=== PATIENT | female | born 1930 | race Caucasian/White ===

== ENCOUNTER 2017-06-15 15:57 | Inpatient (IN) | payer MEDICARE ==
[~2017-06-15] VITALS: Ht 154.9 cm; Wt 55.5 kg
[2017-06-15 17:57] VITALS: BP 145/74
[2017-06-15] MEDS ORDERED: MAGNESIUM HYDROXIDE 2,400 MG/30 ML ORAL.SUSP. PO PRN (18:30)
[2017-06-15] MEDS ORDERED: MAG HYDROX/AL HYDROX/SIMETH 30 ML ORAL.SUSP PO PRN (18:30)
[2017-06-15] MEDS ORDERED: ACETAMINOPHEN 325 MG TABLET PO PRN ×2 (18:30→20:30)
[2017-06-15] MEDS ORDERED: [UNRECOGNIZED DRUG - CODE] PO (20:03)
[2017-06-15] MEDS ORDERED: OXYC-323 PO (20:03)
[2017-06-15] MEDS ORDERED: BENZ-8 PO (20:03)
[2017-06-15] MEDS ORDERED: HYDR25CA75 PO (20:03)
[2017-06-15] MEDS ORDERED: LAMO100T5 PO (20:03)
[2017-06-15] MEDS ORDERED: GABA-586 PO (20:03)
[2017-06-15] MEDS ORDERED: HALO0.5T PO (20:03)
[2017-06-15] MEDS ORDERED: INSU100V SQ (20:03)
[2017-06-15] MEDS ORDERED: GLIP10TA13 PO (20:03)
[2017-06-15] MEDS ORDERED: PRIM50TA PO (20:03)
[2017-06-15] MEDS ORDERED: DULO60CA44 PO (20:03)
[2017-06-15] MEDS ORDERED: METO-239 PO (20:03)
[2017-06-15] MEDS ORDERED: ACET325T9 PO (20:03)
[2017-06-15] MEDS ORDERED: BISM262T6 PO (20:03)
[2017-06-15] MEDS ORDERED: OMEP40CA5 PO (20:03)
[2017-06-15] MEDS ORDERED: SILV20CR14 TP (20:03)
[2017-06-15] MEDS ORDERED: DOCU-109 PO (20:03)
[2017-06-15] MEDS ORDERED: FAMO20TA5 PO (20:03)
[2017-06-15] MEDS ORDERED: DOXY100T9 PO (20:03)
--- NOTE | 2017-06-15 20:04 | PDOC ---
Exam Note: Sukhdev Note: Please also refer to the separate dictated note~for this date of service dictated separately.~Patient seen individually. Discussed the patient with Nursing staff reviewed the chart.~Reviewed interim history and current functioning. Reviewed vital signs,~Labs/ Radiology~and current medications noted below. Continue current treatment with the changes noted in the dictated addendum note Assessment: Vital Signs: Vital Signs Date Time Temp Pulse Resp B/P (MAP) Pulse Ox O2 Delivery O2 Flow Rate FiO2 06/15/17 17:57 97.5 92 20 145/74 (97) 95 Room Air Current Medications: Meds: Current Medications Acetaminophen (Tylenol) 650 mg PRN Q6HRS PRN PO PAIN / TEMP; Start 06/15/17 at 18:30; Status UNV Multi-Ingredient Ointment (Analgesic [place]) 1 phu PRN QID PRN TP MUSCLE PAIN; Start 06/15/17 at 18:30; Status UNV Al Hydroxide/Mg Hydroxide (Mylanta Plus Xs) 15 ml PRN AFTMEALHC PRN PO DYSPEPSIA; Start 06/15/17 at 18:30; Status UNV Magnesium Hydroxide (Milk Of Magnesia) 2,400 mg PRN QHS PRN PO CONSTIPATION; Start 06/15/17 at 18:30; Status UNV Active Scripts Active Reported Silvadene (Silver Sulfadiazine) 20 Gm Cream..g. 1 Phu TP QHS Primidone 50 Mg Tablet 50 Mg PO BID Omeprazole 40 Mg Capsule.dr 40 Mg PO DAILY Metoprolol Succinate ( Xl ) (Metoprolol Succinate) 25 Mg Tab.er.24h 25 Mg PO DAILY Lamictal (Lamotrigine) 100 Mg Tablet 100 Mg PO DAILY Humalog (Insulin Lispro) 100 Unit/1 Ml Vial 0-7 Units SQ QIDACHS Sliding Scale Medium dose Hydroxyzine Pamoate 25 Mg Capsule 25 Mg PO TID Haloperidol 0.5 Mg Tablet 0.5 Mg PO PRN QID PRN Glipizide 10 Mg Tablet 10 Mg PO BIDBFRMEAL Neurontin (Gabapentin) 300 Mg Capsule 300 Mg PO TID Famotidine 20 Mg Tablet 20 Mg PO DAILYAC Duloxetine Hcl 60 Mg Capsule.dr 60 Mg PO BID Doxycycline Hyclate 100 Mg Tablet.dr 100 Mg PO BID 10 Days Colace (Docusate Sodium) 100 Mg Capsule 100 Mg PO BID Bismatrol (Bismuth Subsalicylate) 262 Mg Tab.chew 524 Mg PO PRN QID PRN Cough Syrup Dm (Guaifenesin/Dextromethorphan) 237 Ml Syrup 10 Ml PO PRN Q4HRS PRN Benzonatate 100 Mg Capsule 100 Mg PO Q8HRS Percocet 5-325 Mg Tablet (Oxycodone Hcl/Acetaminophen) 1 Each Tablet 1 Tab PO PRN Q6HRS PRN Tylenol (Acetaminophen) 325 Mg Tablet 650 Mg PO PRN Q4HRS PRN I have reviewed the current psychotropics carefully including drug interactions. Risk benefit ratio favors no change other than as noted in my dictated progress note. FRANCO SEWELL MD Jun 15, 2017 20:04
[2017-06-15] MEDS ORDERED: HALOPERIDOL 0.5 MG TABLET PO PRN (20:15)
[2017-06-15] MEDS ORDERED: DEXTROSE 50% 25 GM / 50ML DISP.SYRIN. IV PRN (20:30)
[2017-06-15] MEDS: DOXYCYCLINE HYCLATE 100 MG TABLET PO SCH (20:57)
[2017-06-15] MEDS: hydrOXYzine PAMOATE 25 MG CAPSULE PO SCH (20:57)
[2017-06-15] MEDS: PRIMIDONE 50 MG TABLET PO SCH (20:57)
[2017-06-15] MEDS: BENZONATATE 100 MG CAPSULE. PO SCH (20:57)
[2017-06-15] MEDS: DULoxetine HCL 60 MG CAPSULE.DR PO SCH (20:57)
[2017-06-15] MEDS: DOCUSATE SODIUM 100 MG CAPSULE PO SCH (20:57)
[2017-06-15] MEDS: GABAPENTIN 300 MG CAPSULE. PO SCH (20:57)
[2017-06-15] MEDS ORDERED: INSULIN LISPRO 1 UNIT SQ SCH (21:00)
[2017-06-15] MEDS ORDERED: silver sulfADIAZINE 1% CREAM 400GM JAR. TP SCH (21:00)
[2017-06-15] MEDS: INSULIN ASPART 300 UNITS/3 ML INSULN.PEN SQ SCH (21:06)
[2017-06-15] MEDS ORDERED: silver sulfADIAZINE 1% CREAM 50GM JAR. TP SCH (21:30)
--- NOTE | 2017-06-16 05:46 | EKG ---
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
[2017-06-16 06:08] VITALS: BP 165/69
[2017-06-16] MEDS: BENZONATATE 100 MG CAPSULE. PO SCH ×3 (06:20→19:52)
[2017-06-16] MEDS: PANTOPRAZOLE 40 MG TABLET. PO SCH (06:20)
[2017-06-16 07:23] LABS: BASO % 1 % (0-3); EOS # 0.1 x10^3/uL (0.0-0.7); EOS % 1 % (0-3); HEMATOCRIT 38.5 % (36.0-47.0); HEMOGLOBIN 12.3 g/dL (12.0-15.5); LYMPH # 1.9 x10^3/uL (1.0-4.8); LYMPH % 22 % (24-48); MEAN CORPUSCULAR HEMOGLOBIN 28 pg (25-35); MEAN CORPUSCULAR HGB CONC 32 g/dL (31-37); MEAN CORPUSCULAR VOLUME 86 fL (79-100); MONO # 0.5 x10^3/uL (0.0-1.1); MONO % 6 % (0-9); NEUT # 6.1 x10^3uL (1.8-7.7); NEUT % 70 % (31-73); PLATELET COUNT 323 x10^3/uL (140-400); RED BLOOD COUNT 4.46 x10^6/uL (3.50-5.40); RED CELL DISTRIBUTION WIDTH 15.5 % (11.5-14.5); WHITE BLOOD COUNT 8.7 x10^3/uL (4.0-11.0)
[2017-06-16 07:40] LABS: ALBUMIN 3.4 g/dL (3.4-5.0); ALBUMIN/GLOBULIN RATIO 0.9 (1.0-1.7); CALCIUM 9.6 mg/dL (8.5-10.1); CREATININE 0.8 mg/dL (0.6-1.0); GFR 68.3; MAGNESIUM 1.6 mg/dL (1.8-2.4); POTASSIUM 3.8 mmol/L (3.5-5.1); TOTAL BILIRUBIN 0.4 mg/dL (0.2-1.0); TOTAL PROTEIN 7.1 g/dL (6.4-8.2)
[2017-06-16] MEDS: INSULIN ASPART 300 UNITS/3 ML INSULN.PEN SQ SCH ×4 (08:38→19:54)
[2017-06-16] MEDS: DOXYCYCLINE HYCLATE 100 MG TABLET PO SCH ×2 (08:38→19:52)
[2017-06-16] MEDS: DULoxetine HCL 60 MG CAPSULE.DR PO SCH (08:38)
[2017-06-16] MEDS: GABAPENTIN 300 MG CAPSULE. PO SCH ×3 (08:38→19:52)
[2017-06-16] MEDS: PRIMIDONE 50 MG TABLET PO SCH ×2 (08:38→19:52)
[2017-06-16] MEDS: hydrOXYzine PAMOATE 25 MG CAPSULE PO SCH ×3 (08:39→19:52)
[2017-06-16] MEDS: DOCUSATE SODIUM 100 MG CAPSULE PO SCH ×2 (08:39→19:52)
[2017-06-16] MEDS: glipiZIDE 10 MG TABLET PO SCH ×2 (08:40→16:53)
[2017-06-16] MEDS: lamoTRIgine 100 MG TABLET. PO SCH (08:42)
[2017-06-16] MEDS: METOPROLOL SUCC 24HR ER 25 MG TAB.ER.24H. PO SCH (08:42)
[2017-06-16 14:08] LABS: THYROID STIM HORMONE (TSH) 1.767 uIU/mL (0.358-3.740)
[2017-06-16] MEDS ORDERED: VITS A & D/LANOLIN TOPICAL OINTMENT 56GM TUBE. TP PRN (16:30)
[2017-06-16 16:33] VITALS: BP 130/77
[2017-06-16] MEDS: QUEtiapine 25 MG TABLET. PO SCH (19:55)
[2017-06-16] MEDS: DULoxetine HCL 30 MG CAPSULE.DR PO SCH (19:55)
[2017-06-16] MEDS: LACTOBACILLUS RHAMNOSUS GG 1 CAPSULE. PO SCH (19:55)
[2017-06-16 21:08] LABS: T3 TOTAL 85 ng/dL (71-180)
[2017-06-16] MEDS: oxyCODONE/APAP 5/325 1 TAB TABLET PO PRN (21:10)
--- NOTE | 2017-06-17 01:27 | HP ---
ADMIT DATE: 06/15/2017 PSYCHIATRIC ADMISSION HISTORY/EVALUATION This is a late entry for 06/15/2017, covers elements not covered in my initial note of 06/15/2017. The patient seen individually the evening of 06/15/2017. Discussed with nursing staff several times prior to this and to gather historical information from [facility], where she was hospitalized with acute mental status changes. Reviewed all those records as well. IDENTIFYING DATA: The patient is an 86-year-old female who resides at [facility] and was admitted to [facility] with acute mental status changes and worsening tremors. The latter attributed to antipsychotic usage. She was also noted to have a history of tardive dyskinesia, Parkinson's, past history of bipolar disorder, anxiety, depression and long-term use of antipsychotics. Nevertheless, even when she was medically stabilized at [facility], she remained extremely anxious with racing thoughts, tremors, psychotic symptoms, shouting at staff. Behaviors had failed psychiatric interventions at the level of care less than an inpatient setting, referred for inpatient psychiatric stabilization directly from [facility] for inpatient medical services. IDENTIFYING DATA: "I don't know." The patient responded when asked her when she came here and later what the date was." The patient is quite confused with rapid speech, marked anxiety, and mood lability." HISTORY OF PRESENT ILLNESS: The patient has a long history of bipolar disorder, anxiety disorder, depression, and recent worsening of cognition and memory deficits. Despite that she has been living at an independent living with worsening tremors, history of tardive dyskinesia due to long-term antipsychotic usage. No active suicidal or homicidal ideation, but she appeared intermittently psychotic. Sleep and appetite have had significant changes. PAST PSYCHIATRIC HISTORY: As above. Approximately 1 month prior to this admission at [facility], the patient was hospitalized status post overdose on opiates. 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 CURRENT PSYCHOTROPICS: The patient's psychotropics were all discontinued while she was at [facility] and prior to that at certain point, she had been on Risperdal, Abilify, Cymbalta, Neurontin, Haldol, lamotrigine together with primidone at different times. DIET: Regular. PRIMARY CARE PHYSICIAN: Dr. Hung. ALLERGIES: MORPHINE AND PENICILLIN. FAMILY HISTORY: Noncontributory. SOCIAL HISTORY: No alcohol, drug abuse, physical, sexual or elder abuse history is noted. Not known to be a perpetrator. MENTAL STATUS EXAMINATION: The patient is oriented to herself, anxious, restless, constantly moving, marked mood lability is evident. Speech coherent, rapid, disorganized. Insight, judgment, recent and remote memory, attention, concentration, fund of knowledge poor, consistent with her diagnoses. Attention span short. Language function intact. Mood and affect labile. LABORATORY DATA: Reviewed. 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 PLAN: Admit to Geropsychiatry Unit at [facility]. I will see the patient daily individually from a psychiatric standpoint and medical followup per Dr. Ann/Dr. Saldivar. Continue the patient on her current psychotropics, most of which have been discontinued. Observe her baseline, then get past psychiatric records. Make further adjustments as clinically indicated. MAN Rosie SEWELL MD DR: FLAVIA/lizy JOB#: [id number] / [id number]
[2017-06-17 03:18] LABS: HEMOGLOBIN A1C 6.8 % (4.8-5.6)
[2017-06-17] MEDS: BENZONATATE 100 MG CAPSULE. PO SCH ×3 (06:01→19:40)
[2017-06-17 06:02] VITALS: BP 121/72
[2017-06-17] MEDS: INSULIN ASPART 300 UNITS/3 ML INSULN.PEN SQ SCH ×4 (07:30→19:42)
[2017-06-17] MEDS: PANTOPRAZOLE 40 MG TABLET. PO SCH (07:56)
[2017-06-17] MEDS: glipiZIDE 10 MG TABLET PO SCH ×2 (07:57→17:09)
[2017-06-17] MEDS: DOXYCYCLINE HYCLATE 100 MG TABLET PO SCH ×2 (08:57→19:40)
[2017-06-17] MEDS: PRIMIDONE 50 MG TABLET PO SCH ×2 (08:57→19:40)
[2017-06-17] MEDS: LACTOBACILLUS RHAMNOSUS GG 1 CAPSULE. PO SCH ×2 (08:57→19:39)
[2017-06-17] MEDS: hydrOXYzine PAMOATE 25 MG CAPSULE PO SCH ×3 (08:57→19:40)
[2017-06-17] MEDS: GABAPENTIN 300 MG CAPSULE. PO SCH ×3 (08:57→19:40)
[2017-06-17] MEDS: lamoTRIgine 100 MG TABLET. PO SCH (08:58)
[2017-06-17] MEDS: DULoxetine HCL 30 MG CAPSULE.DR PO SCH ×2 (08:58→19:40)
[2017-06-17] MEDS: DOCUSATE SODIUM 100 MG CAPSULE PO SCH ×2 (08:58→19:40)
[2017-06-17] MEDS: METOPROLOL SUCC 24HR ER 25 MG TAB.ER.24H. PO SCH (08:58)
--- NOTE | 2017-06-17 09:54 | PDOC ---
Exam Note: Sukhdev Note: Please also refer to the separate dictated note~for this date of service dictated separately.~Patient seen individually. Discussed the patient with Nursing staff reviewed the chart.~Reviewed interim history and current functioning. Reviewed vital signs,~Labs/ Radiology~and current medications noted below. Continue current treatment with the changes noted in the dictated addendum note. This is a late entry for date of service June 16, 2017 Assessment: Vital Signs: VS - Last 72 Hours, by Label Date Time Temp Pulse Resp B/P (MAP) Pulse Ox O2 Delivery O2 Flow Rate FiO2 06/17/17 08:58 71 121/72 06/17/17 06:02 97.2 71 16 121/72 (88) 100 06/16/17 22:10 20 96 06/16/17 21:10 20 96 Room Air 06/16/17 16:33 98.1 91 18 130/77 (94) 97 Room Air 06/16/17 08:42 74 165/69 06/16/17 06:08 98.1 74 16 165/69 (101) 96 06/15/17 17:57 97.5 92 20 145/74 (97) 95 Room Air Vital Signs Date Time Temp Pulse Resp B/P (MAP) Pulse Ox O2 Delivery O2 Flow Rate FiO2 06/17/17 08:58 71 121/72 06/17/17 06:02 97.2 16 100 06/16/17 21:10 Room Air I&O Intake and Output 06/17/17 07:00 Intake Total 720 ml Balance 720 ml Intake Oral 720 ml Labs: Laboratory Tests Test 06/16/17 11:33 06/16/17 16:34 06/16/17 19:03 06/17/17 07:17 Glucose (Fingerstick) 179 mg/dL (70-99) H 105 mg/dL (70-99) H 248 mg/dL (70-99) H 107 mg/dL (70-99) H Current Medications: Meds: Current Medications Acetaminophen (Tylenol) 650 mg PRN Q6HRS PRN PO PAIN / TEMP; Start 06/15/17 at 18:30; Stop 06/15/17 at 20:36; Status DC Multi-Ingredient Ointment (Analgesic [place]) 1 phu PRN QID PRN TP MUSCLE PAIN; Start 06/15/17 at 18:30 Al Hydroxide/Mg Hydroxide (Mylanta Plus Xs) 15 ml PRN AFTMEALHC PRN PO DYSPEPSIA; Start 06/15/17 at 18:30 Magnesium Hydroxide (Milk Of Magnesia) 2,400 mg PRN QHS PRN PO CONSTIPATION; Start 06/15/17 at 18:30 Duloxetine HCl (Cymbalta) 60 mg BID PO Last administered on 06/16/17 08:38; Start 06/15/17 at 21:00; Stop 06/16/17 at 18:29; Status DC Haloperidol (Haldol) 0.5 mg PRN QID PRN PO ANXIETY / AGITATION Last administered on 06/16/17 02:58; Start 06/15/17 at 20:15 Hydroxyzine Pamoate (Vistaril) 25 mg TID PO Last administered on 06/17/17 08: 57; Start 06/15/17 at 21:00 Lamotrigine (LaMICtal) 100 mg DAILY PO Last administered on 06/17/17 08:58; Start 06/16/17 at 09:00 Primidone (Mysoline) 50 mg BID PO Last administered on 06/17/17 08:57; Start 06/15/17 at 21:00 Insulin Aspart (NovoLOG) 0-7 UNITS QIDACHS SQ Last administered on 06/16/17at 19 :54; Start 06/15/17 at 21:00 Dextrose 12.5 gm PRN Q15MIN PRN IV SEE COMMENTS; Start 06/15/17 at 20:30 Acetaminophen (Tylenol) 650 mg PRN Q4HRS PRN PO PAIN; Start 06/15/17 at 20:30 Benzonatate (Tessalon Perle) 100 mg Q8HRS PO Last administered on 06/17/17 06: 01; Start 06/15/17 at 22:00 Docusate Sodium (Colace) 100 mg BID PO Last administered on 06/17/17 08:58; Start 06/15/17 at 21:00 Gabapentin (Neurontin) 300 mg TID PO Last administered on 06/17/17 08:57; Start 06/15/17 at 21:00 Glipizide (Glucotrol) 10 mg BIDBFRMEAL PO Last administered on 06/17/17at 07:57 ; Start 06/16/17 at 07:30 Metoprolol Succinate (Toprol Xl) 25 mg DAILY PO Last administered on 06/17/17at 08:58; Start 06/16/17 at 09:00 Oxycodone/ Acetaminophen (Percocet 5/325) 1 tab PRN Q6HRS PRN PO MODERATE PAIN Last administered on 06/16/17at 21:10; Start 06/15/17 at 20:30 Silver Sulfadiazine (Silvadene) 1 phu QHS TP ; Start 06/15/17 at 21:00; Status Cancel Doxycycline Hyclate (Vibra-Tab) 100 mg BID PO Last administered on 06/17/17at 08 :57; Start 06/15/17 at 21:00; Stop 06/25/17 at 09:01 Non-Formulary Medication 1 units QIDACHS SQ ; Start 06/15/17 at 21:00; Stop at 21:00; Status DC Pantoprazole Sodium (Protonix) 40 mg DAILYAC PO Last administered on 06/17/17at 07:56; Start 06/16/17 at 07:30 Silver Sulfadiazine (Silvadene) 1 phu QHS TP Last administered on 06/15/17at 21: 30; Start 06/15/17 at 21:30; Stop 06/16/17 at 16:24; Status DC Lactobacillus Rhamnosus (Culturelle) 1 cap BID PO Last administered on at 08:57; Start 06/16/17 at 21:00 Vitamin A/Vitamin D (Vitamin A & D Ointment) 1 phu PRN BID PRN TP SKIN PROTECTION; Start 06/16/17 at 16:30 Duloxetine HCl (Cymbalta) 30 mg BID PO Last administered on 06/17/17at 08:58; Start 06/16/17 at 21:00 Quetiapine Fumarate (SEROquel) 25 mg QHS PO Last administered on 06/16/17at 19: 55; Start 06/16/17 at 21:00 Active Scripts Active Reported Silvadene (Silver Sulfadiazine) 20 Gm Cream..g. 1 Phu TP QHS Primidone 50 Mg Tablet 50 Mg PO BID Omeprazole 40 Mg Capsule.dr 40 Mg PO DAILY Metoprolol Succinate ( Xl ) (Metoprolol Succinate) 25 Mg Tab.er.24h 25 Mg PO DAILY Lamictal (Lamotrigine) 100 Mg Tablet 100 Mg PO DAILY Humalog (Insulin Lispro) 100 Unit/1 Ml Vial 0-7 Units SQ QIDACHS Sliding Scale Medium dose Hydroxyzine Pamoate 25 Mg Capsule 25 Mg PO TID Haloperidol 0.5 Mg Tablet 0.5 Mg PO PRN QID PRN Glipizide 10 Mg Tablet 10 Mg PO BIDBFRMEAL Neurontin (Gabapentin) 300 Mg Capsule 300 Mg PO TID Famotidine 20 Mg Tablet 20 Mg PO DAILYAC Duloxetine Hcl 60 Mg Capsule.dr 60 Mg PO BID Doxycycline Hyclate 100 Mg Tablet.dr 100 Mg PO BID 10 Days Colace (Docusate Sodium) 100 Mg Capsule 100 Mg PO BID Bismatrol (Bismuth Subsalicylate) 262 Mg Tab.chew 524 Mg PO PRN QID PRN Cough Syrup Dm (Guaifenesin/Dextromethorphan) 237 Ml Syrup 10 Ml PO PRN Q4HRS PRN Benzonatate 100 Mg Capsule 100 Mg PO Q8HRS Percocet 5-325 Mg Tablet (Oxycodone Hcl/Acetaminophen) 1 Each Tablet 1 Tab PO PRN Q6HRS PRN Tylenol (Acetaminophen) 325 Mg Tablet 650 Mg PO PRN Q4HRS PRN I have reviewed the current psychotropics carefully including drug interactions. Risk benefit ratio favors no change other than as noted in my dictated progress note. Diagnosis: Problems: (1) Anxiety disorder (2) Bipolar affective disorder, mixed (3) Dementia in Alzheimer's disease with delusions (4) Dementia in Alzheimer's disease with depression (5) Dementia, vascular, with delusions (6) Dementia, vascular, with depression (7) Impulse control disorder FRANCO SEWELL MD Jun 17, 2017 09:53
[2017-06-17] MEDS: oxyCODONE/APAP 5/325 1 TAB TABLET PO PRN ×2 (10:51→19:42)
[2017-06-17] MEDS: METHYL SALICYLATE/MENTHOL TOPICAL OINTMENT 29GM TUBE. TP PRN (14:33)
[2017-06-17 16:17] VITALS: BP 157/74
[2017-06-17] MEDS: QUEtiapine 25 MG TABLET. PO SCH (19:40)
--- NOTE | 2017-06-17 22:23 | PDOC ---
Exam Note: Sukhdev Note: Please also refer to the separate dictated note~for this date of service dictated separately.~Patient seen individually. Discussed the patient with Nursing staff reviewed the chart.~Reviewed interim history and current functioning. Reviewed vital signs,~Labs/ Radiology~and current medications noted below. Continue current treatment with the changes noted in the dictated addendum note Assessment: Vital Signs: Vital Signs Date Time Temp Pulse Resp B/P (MAP) Pulse Ox O2 Delivery O2 Flow Rate FiO2 06/17/17 20:42 18 96 06/17/17 16:17 98.8 94 157/74 (101) 06/17/17 12:01 Room Air I&O Intake and Output 06/17/17 07:00 Intake Total 720 ml Balance 720 ml Intake Oral 720 ml Labs: Laboratory Tests Test 06/17/17 07:17 06/17/17 11:09 06/17/17 16:36 06/17/17 19:05 Glucose (Fingerstick) 107 mg/dL (70-99) H 252 mg/dL (70-99) H 132 mg/dL (70-99) H 192 mg/dL (70-99) H Current Medications: Meds: Current Medications Acetaminophen (Tylenol) 650 mg PRN Q6HRS PRN PO PAIN / TEMP; Start 06/15/17 at 18:30; Stop 06/15/17 at 20:36; Status DC Multi-Ingredient Ointment (Analgesic [place]) 1 phu PRN QID PRN TP MUSCLE PAIN Last administered on 06/17/17at 14:33; Start 06/15/17 at 18:30 Al Hydroxide/Mg Hydroxide (Mylanta Plus Xs) 15 ml PRN AFTMEALHC PRN PO DYSPEPSIA; Start 06/15/17 at 18:30 Magnesium Hydroxide (Milk Of Magnesia) 2,400 mg PRN QHS PRN PO CONSTIPATION; Start 06/15/17 at 18:30 Duloxetine HCl (Cymbalta) 60 mg BID PO Last administered on 06/16/17at 08:38; Start 06/15/17 at 21:00; Stop 06/16/17 at 18:29; Status DC Haloperidol (Haldol) 0.5 mg PRN QID PRN PO ANXIETY / AGITATION Last administered on 06/16/17at 02:58; Start 06/15/17 at 20:15 Hydroxyzine Pamoate (Vistaril) 25 mg TID PO Last administered on 06/17/17 19: 40; Start 06/15/17 at 21:00 Lamotrigine (LaMICtal) 100 mg DAILY PO Last administered on 06/17/17at 08:58; Start 06/16/17 at 09:00 Primidone (Mysoline) 50 mg BID PO Last administered on 06/17/17 19:40; Start 06/15/17 at 21:00 Insulin Aspart (NovoLOG) 0-7 UNITS QIDACHS SQ Last administered on 06/17/17at 11 :27; Start 06/15/17 at 21:00 Dextrose 12.5 gm PRN Q15MIN PRN IV SEE COMMENTS; Start 06/15/17 at 20:30 Acetaminophen (Tylenol) 650 mg PRN Q4HRS PRN PO PAIN; Start 06/15/17 at 20:30 Benzonatate (Tessalon Perle) 100 mg Q8HRS PO Last administered on 06/17/17at 19: 40; Start 06/15/17 at 22:00 Docusate Sodium (Colace) 100 mg BID PO Last administered on 06/17/17 19:40; Start 06/15/17 at 21:00 Gabapentin (Neurontin) 300 mg TID PO Last administered on 06/17/17 19:40; Start 06/15/17 at 21:00 Glipizide (Glucotrol) 10 mg BIDBFRMEAL PO Last administered on 06/17/17at 17:09 ; Start 06/16/17 at 07:30 Metoprolol Succinate (Toprol Xl) 25 mg DAILY PO Last administered on 06/17/17at 08:58; Start 06/16/17 at 09:00 Oxycodone/ Acetaminophen (Percocet 5/325) 1 tab PRN Q6HRS PRN PO MODERATE PAIN Last administered on 06/17/17at 19:42; Start 06/15/17 at 20:30 Silver Sulfadiazine (Silvadene) 1 phu QHS TP ; Start 06/15/17 at 21:00; Status Cancel Doxycycline Hyclate (Vibra-Tab) 100 mg BID PO Last administered on 06/17/17at 19 :40; Start 06/15/17 at 21:00; Stop 2/4/18 at 09:01 Non-Formulary Medication 1 units QIDACHS SQ ; Start 06/15/17 at 21:00; Stop at 21:00; Status DC Pantoprazole Sodium (Protonix) 40 mg DAILYAC PO Last administered on 06/17/17at 07:56; Start 06/16/17 at 07:30 Silver Sulfadiazine (Silvadene) 1 phu QHS TP Last administered on 06/15/17at 21: 30; Start 06/15/17 at 21:30; Stop 06/16/17 at 16:24; Status DC Lactobacillus Rhamnosus (Culturelle) 1 cap BID PO Last administered on at 19:39; Start 06/16/17 at 21:00 Vitamin A/Vitamin D (Vitamin A & D Ointment) 1 phu PRN BID PRN TP SKIN PROTECTION; Start 06/16/17 at 16:30 Duloxetine HCl (Cymbalta) 30 mg BID PO Last administered on 06/17/17at 19:40; Start 06/16/17 at 21:00 Quetiapine Fumarate (SEROquel) 25 mg QHS PO Last administered on 06/17/17at 19: 40; Start 06/16/17 at 21:00 Active Scripts Active Reported Silvadene (Silver Sulfadiazine) 20 Gm Cream..g. 1 Phu TP QHS Primidone 50 Mg Tablet 50 Mg PO BID Omeprazole 40 Mg Capsule.dr 40 Mg PO DAILY Metoprolol Succinate ( Xl ) (Metoprolol Succinate) 25 Mg Tab.er.24h 25 Mg PO DAILY Lamictal (Lamotrigine) 100 Mg Tablet 100 Mg PO DAILY Humalog (Insulin Lispro) 100 Unit/1 Ml Vial 0-7 Units SQ QIDACHS Sliding Scale Medium dose Hydroxyzine Pamoate 25 Mg Capsule 25 Mg PO TID Haloperidol 0.5 Mg Tablet 0.5 Mg PO PRN QID PRN Glipizide 10 Mg Tablet 10 Mg PO BIDBFRMEAL Neurontin (Gabapentin) 300 Mg Capsule 300 Mg PO TID Famotidine 20 Mg Tablet 20 Mg PO DAILYAC Duloxetine Hcl 60 Mg Capsule.dr 60 Mg PO BID Doxycycline Hyclate 100 Mg Tablet.dr 100 Mg PO BID 10 Days Colace (Docusate Sodium) 100 Mg Capsule 100 Mg PO BID Bismatrol (Bismuth Subsalicylate) 262 Mg Tab.chew 524 Mg PO PRN QID PRN Cough Syrup Dm (Guaifenesin/Dextromethorphan) 237 Ml Syrup 10 Ml PO PRN Q4HRS PRN Benzonatate 100 Mg Capsule 100 Mg PO Q8HRS Percocet 5-325 Mg Tablet (Oxycodone Hcl/Acetaminophen) 1 Each Tablet 1 Tab PO PRN Q6HRS PRN Tylenol (Acetaminophen) 325 Mg Tablet 650 Mg PO PRN Q4HRS PRN I have reviewed the current psychotropics carefully including drug interactions. Risk benefit ratio favors no change other than as noted in my dictated progress note. Diagnosis: Problems: (1) Anxiety disorder (2) Bipolar affective disorder, mixed (3) Dementia in Alzheimer's disease with delusions (4) Dementia in Alzheimer's disease with depression (5) Dementia, vascular, with delusions (6) Dementia, vascular, with depression (7) Impulse control disorder FRANCO SEWELL MD Jun 17, 2017 22:23
[2017-06-18] MEDS: BENZONATATE 100 MG CAPSULE. PO SCH ×3 (05:34→19:20)
[2017-06-18] MEDS: oxyCODONE/APAP 5/325 1 TAB TABLET PO PRN ×2 (05:56→12:03)
[2017-06-18 06:22] VITALS: BP_SYST 133; BP_SYST 135; BP_DIAS 66; BP_DIAS 67
[2017-06-18 07:06] LABS: BACTERIA,URINE 0 /HPF (0-FEW); BILIRUBIN,URINE NEG (NEG); CLARITY,URINE TURBID; COLOR,URINE YELLOW; GLUCOSE,URINE NEG (NEG); NITRITE,URINE NEG (NEG); SQUAMOUS EPITHELIAL CELL,UR OCC /LPF; UROBILINOGEN,URINE 0.2 mg/dL (0.2 mg/dL); WBC,URINE >40 /HPF (0-4); YEAST,URINE PRESENT /HPF
[2017-06-18] MEDS: glipiZIDE 10 MG TABLET PO SCH ×2 (07:40→17:24)
[2017-06-18] MEDS: PANTOPRAZOLE 40 MG TABLET. PO SCH (07:41)
[2017-06-18] MEDS: INSULIN ASPART 300 UNITS/3 ML INSULN.PEN SQ SCH ×4 (07:49→20:07)
[2017-06-18] MEDS: DOXYCYCLINE HYCLATE 100 MG TABLET PO SCH (08:43)
[2017-06-18] MEDS: DOCUSATE SODIUM 100 MG CAPSULE PO SCH ×2 (08:43→19:20)
[2017-06-18] MEDS: LACTOBACILLUS RHAMNOSUS GG 1 CAPSULE. PO SCH ×2 (08:43→19:20)
[2017-06-18] MEDS: DULoxetine HCL 30 MG CAPSULE.DR PO SCH ×2 (08:44→19:20)
[2017-06-18] MEDS: PRIMIDONE 50 MG TABLET PO SCH ×2 (08:44→19:20)
[2017-06-18] MEDS: lamoTRIgine 100 MG TABLET. PO SCH (08:44)
[2017-06-18] MEDS: METOPROLOL SUCC 24HR ER 25 MG TAB.ER.24H. PO SCH (08:44)
[2017-06-18] MEDS: hydrOXYzine PAMOATE 25 MG CAPSULE PO SCH (08:44)
[2017-06-18] MEDS: GABAPENTIN 300 MG CAPSULE. PO SCH ×3 (08:44→19:20)
[2017-06-18] MEDS ORDERED: FLUCONAZOLE 100 MG TABLET. PO ONE (14:00)
[2017-06-18] MEDS ORDERED: FOSFOMYCIN TROMETHAMINE 3 GM PACKET PO ONE (14:00)
[2017-06-18] MEDS: hydrOXYzine HCL 10 MG TABLET PO SCH ×2 (14:21→19:37)
[2017-06-18] MEDS: METHYL SALICYLATE/MENTHOL TOPICAL OINTMENT 29GM TUBE. TP PRN (14:25)
[2017-06-18 16:19] VITALS: BP 115/64
--- NOTE | 2017-06-18 17:04 | HP ---
ADMIT DATE: 06/15/2017 REASON FOR ADMISSION TO SENIOR BEHAVIORAL UNIT: This is an 86-year-old female who lives in an apartment for elderly people with her who she states has been sick, but she has had anxiety, racing thoughts, tremors, nervousness, shouting at staff and taking too much pain medication. The patient states she has severe osteoarthritis and has been taking medication. It is also felt she possibly would have altered mental status. ALLERGIES: PENICILLIN AND MORPHINE. MEDICATIONS: Reviewed and are available on the MAR. PAST MEDICAL HISTORY: Anxiety, tardive dyskinesia, depression, bipolar, type 2 diabetes, osteoarthritis, tremors, hypertension, history of fractures, pneumonia and scoliosis. IMMUNIZATIONS: The patient had a pneumococcal vaccine in 02/2016, and the flu shot on 02/2017. SOCIAL HISTORY: The patient resides in [facility] [address] in [place], [place]. She lives with her . FUNCTIONALITY: The patient states she walks with a walker in her home. Denies falling. HABITS: Smoked in high school, but after that none. No problems with alcohol. PAST SURGICAL HISTORY: Cataract, tonsillectomy, adenoidectomy at 12 years old. REVIEW OF SYSTEMS: Positive for tremors, anxiety and nervousness. OBJECTIVE: VITAL SIGNS: Blood pressure 135/67, pulse 84, respirations 20, temperature 97.6, pulse ox 96% on room air. Height is 65 inches, weight is not recorded. GENERAL: A pleasant 86-year-old who is very anxious. HEENT: TMs were intact bilaterally. She is mildly hard of hearing. Her pupils are equal, round, reactive to light. She has changes consistent with cataract surgery. Nose was patent. Throat was clear. Tongue with fasciculations. NECK: Supple, without adenopathy. LUNGS: Clear to auscultation. CARDIOVASCULAR: Regular rhythm and rate, 2/6 systolic murmur. ABDOMEN: Soft, nontender. EXTREMITIES: Without edema. COGNITION: The patient is extremely anxious and very nervous and very tremulous as she is talking. She admits to being very nervous. She was able to give a good history about what has been going on with her. She is very anxious to leave. MUSCULOSKELETAL: Fails to get up and go test, could not stand up out of the wheelchair. Reflexes brisk 2+/4. NEUROLOGIC: She is able to follow directions. Cranial nerves were intact except for being hard of hearing, but she has severe tremors that worsen with anxiety. LABORATORY DATA: CBC normal. Glucose is slightly elevated. Urinalysis greater than 40 white cells, moderate leukocyte esterase, this is a clean catch. RPR is nonreactive. Urine culture not back yet. ASSESSMENT: 1. An 86-year-old with anxiety 2. Severe tremors, questionable etiology, possible Parkinson's. 3. History of tardive dyskinesia. 4. Depression. 5. Bipolar disorder. 6. Type 2 diabetes with mild hyperglycemia. 7. Osteoarthritis. 8. Impaired mobility. 9. Hypertension. 10. Fall risk. 11. Urinary tract infection. PLAN: Treat her UTI. She also had yeast in her urine and she has been on doxycycline twice a day since 06/13/2017, will probably switch that and treat her other conditions. TOÑO RIVERA DO DR: CHESTER/lizy JOB#: [id number] / [id number]
[2017-06-18] MEDS: QUEtiapine 25 MG TABLET. PO SCH (19:20)
--- NOTE | 2017-06-18 20:15 | PDOC ---
Exam Note: Sukhdev Note: Please also refer to the separate dictated note~for this date of service dictated separately.~Patient seen individually. Discussed the patient with Nursing staff reviewed the chart.~Reviewed interim history and current functioning. Reviewed vital signs,~Labs/ Radiology~and current medications noted below. Continue current treatment with the changes noted in the dictated addendum note Assessment: Vital Signs: Vital Signs Date Time Temp Pulse Resp B/P (MAP) Pulse Ox O2 Delivery O2 Flow Rate FiO2 06/18/17 16:19 97.9 76 20 115/64 (81) 98 Room Air I&O Intake and Output 06/18/17 07:00 Intake Total 1200 ml Balance 1200 ml Intake Oral 1200 ml # Bowel Movements 1 Labs: Laboratory Tests Test 06/18/17 06:00 06/18/17 07:26 06/18/17 11:25 06/18/17 16:52 Urine Collection Type Clean catch Urine Color Yellow Urine Clarity Turbid Urine pH 5.5 Urine Specific Reading 1.025 Urine Protein 100 mg/dl (NEG-TRACE) Urine Glucose (UA) Neg mg/dL (NEG) Urine Ketones (Stick) Neg mg/dL (NEG) Urine Blood Mod (NEG) Urine Nitrite Neg (NEG) Urine Bilirubin Neg (NEG) Urine Urobilinogen Dipstick 0.2 mg/dL (0.2 mg/dL) Urine Leukocyte Esterase Mod (NEG) Urine RBC 1-2 /HPF (0-2) Urine WBC >40 /HPF (0-4) Urine Squamous Epithelial Cells Occ /LPF Urine Bacteria 0 /HPF (0-FEW) Urine Mucus Slight /LPF Urine Yeast Present /HPF Glucose (Fingerstick) 201 mg/dL (70-99) H 204 mg/dL (70-99) H 235 mg/dL (70-99) H Test 06/18/17 19:42 Glucose (Fingerstick) 122 mg/dL (70-99) H Current Medications: Meds: Current Medications Acetaminophen (Tylenol) 650 mg PRN Q6HRS PRN PO PAIN / TEMP; Start 06/15/17 at 18:30; Stop 06/15/17 at 20:36; Status DC Multi-Ingredient Ointment (Analgesic [place]) 1 phu PRN QID PRN TP MUSCLE PAIN Last administered on 06/18/17at 14:25; Start 06/15/17 at 18:30 Al Hydroxide/Mg Hydroxide (Mylanta Plus Xs) 15 ml PRN AFTMEALHC PRN PO DYSPEPSIA; Start 06/15/17 at 18:30 Magnesium Hydroxide (Milk Of Magnesia) 2,400 mg PRN QHS PRN PO CONSTIPATION; Start 06/15/17 at 18:30 Duloxetine HCl (Cymbalta) 60 mg BID PO Last administered on 06/16/17at 08:38; Start 06/15/17 at 21:00; Stop 06/16/17 at 18:29; Status DC Haloperidol (Haldol) 0.5 mg PRN QID PRN PO ANXIETY / AGITATION Last administered on 06/16/17at 02:58; Start 06/15/17 at 20:15 Hydroxyzine Pamoate (Vistaril) 25 mg TID PO Last administered on 06/18/17at 08: 44; Start 06/15/17 at 21:00; Stop 06/18/17 at 09:15; Status DC Lamotrigine (LaMICtal) 100 mg DAILY PO Last administered on 06/18/17at 08:44; Start 06/16/17 at 09:00 Primidone (Mysoline) 50 mg BID PO Last administered on 06/18/17at 19:20; Start 06/15/17 at 21:00 Insulin Aspart (NovoLOG) 0-7 UNITS QIDACHS SQ Last administered on 06/18/17at 17 :26; Start 06/15/17 at 21:00 Dextrose 12.5 gm PRN Q15MIN PRN IV SEE COMMENTS; Start 06/15/17 at 20:30 Acetaminophen (Tylenol) 650 mg PRN Q4HRS PRN PO PAIN; Start 06/15/17 at 20:30 Benzonatate (Tessalon Perle) 100 mg Q8HRS PO Last administered on 06/18/17at 19: 20; Start 06/15/17 at 22:00 Docusate Sodium (Colace) 100 mg BID PO Last administered on 06/18/17at 19:20; Start 06/15/17 at 21:00 Gabapentin (Neurontin) 300 mg TID PO Last administered on 06/18/17at 19:20; Start 06/15/17 at 21:00 Glipizide (Glucotrol) 10 mg BIDBFRMEAL PO Last administered on 06/18/17at 17:24 ; Start 06/16/17 at 07:30 Metoprolol Succinate (Toprol Xl) 25 mg DAILY PO Last administered on 06/18/17at 08:44; Start 06/16/17 at 09:00 Oxycodone/ Acetaminophen (Percocet 5/325) 1 tab PRN Q6HRS PRN PO MODERATE PAIN Last administered on 06/18/17at 12:03; Start 06/15/17 at 20:30 Silver Sulfadiazine (Silvadene) 1 phu QHS TP ; Start 06/15/17 at 21:00; Status Cancel Doxycycline Hyclate (Vibra-Tab) 100 mg BID PO Last administered on 06/18/17at 08 :43; Start 06/15/17 at 21:00; Stop 06/18/17 at 13:27; Status DC Non-Formulary Medication 1 units QIDACHS SQ ; Start 06/15/17 at 21:00; Stop at 21:00; Status DC Pantoprazole Sodium (Protonix) 40 mg DAILYAC PO Last administered on 06/18/17at 07:41; Start 06/16/17 at 07:30 Silver Sulfadiazine (Silvadene) 1 phu QHS TP Last administered on 06/15/17at 21: 30; Start 06/15/17 at 21:30; Stop 06/16/17 at 16:24; Status DC Lactobacillus Rhamnosus (Culturelle) 1 cap BID PO Last administered on at 19:20; Start 06/16/17 at 21:00 Vitamin A/Vitamin D (Vitamin A & D Ointment) 1 phu PRN BID PRN TP SKIN PROTECTION; Start 06/16/17 at 16:30 Duloxetine HCl (Cymbalta) 30 mg BID PO Last administered on 06/18/17at 19:20; Start 06/16/17 at 21:00 Quetiapine Fumarate (SEROquel) 25 mg QHS PO Last administered on 06/18/17at 19: 20; Start 06/16/17 at 21:00 Hydroxyzine HCl (Atarax) 10 mg TID PO Last administered on 06/18/17at 19:37; Start 06/18/17 at 14:00 Fosfomycin Tromethamine (Monurol) 3 gm 1X ONCE PO Last administered on at 14:21; Start 06/18/17 at 14:00; Stop 06/18/17 at 14:01; Status DC Fluconazole (Diflucan) 100 mg 1X ONCE PO Last administered on 06/18/17at 14:21 ; Start 06/18/17 at 14:00; Stop 06/18/17 at 14:01; Status DC Active Scripts Active Reported Silvadene (Silver Sulfadiazine) 20 Gm Cream..g. 1 Phu TP QHS Primidone 50 Mg Tablet 50 Mg PO BID Omeprazole 40 Mg Capsule.dr 40 Mg PO DAILY Metoprolol Succinate ( Xl ) (Metoprolol Succinate) 25 Mg Tab.er.24h 25 Mg PO DAILY Lamictal (Lamotrigine) 100 Mg Tablet 100 Mg PO DAILY Humalog (Insulin Lispro) 100 Unit/1 Ml Vial 0-7 Units SQ QIDACHS Sliding Scale Medium dose Hydroxyzine Pamoate 25 Mg Capsule 25 Mg PO TID Haloperidol 0.5 Mg Tablet 0.5 Mg PO PRN QID PRN Glipizide 10 Mg Tablet 10 Mg PO BIDBFRMEAL Neurontin (Gabapentin) 300 Mg Capsule 300 Mg PO TID Famotidine 20 Mg Tablet 20 Mg PO DAILYAC Duloxetine Hcl 60 Mg Capsule.dr 60 Mg PO BID Doxycycline Hyclate 100 Mg Tablet.dr 100 Mg PO BID 10 Days Colace (Docusate Sodium) 100 Mg Capsule 100 Mg PO BID Bismatrol (Bismuth Subsalicylate) 262 Mg Tab.chew 524 Mg PO PRN QID PRN Cough Syrup Dm (Guaifenesin/Dextromethorphan) 237 Ml Syrup 10 Ml PO PRN Q4HRS PRN Benzonatate 100 Mg Capsule 100 Mg PO Q8HRS Percocet 5-325 Mg Tablet (Oxycodone Hcl/Acetaminophen) 1 Each Tablet 1 Tab PO PRN Q6HRS PRN Tylenol (Acetaminophen) 325 Mg Tablet 650 Mg PO PRN Q4HRS PRN I have reviewed the current psychotropics carefully including drug interactions. Risk benefit ratio favors no change other than as noted in my dictated progress note. Diagnosis: Problems: (1) Anxiety disorder (2) Bipolar affective disorder, mixed (3) Dementia in Alzheimer's disease with delusions (4) Dementia in Alzheimer's disease with depression (5) Dementia, vascular, with delusions (6) Dementia, vascular, with depression (7) Impulse control disorder FRANCO SEWELL MD Jun 18, 2017 20:15
--- NOTE | 2017-06-18 20:46 | PN ---
DATE: 06/16/2017 This late entry 06/16/2017 covers elements not covered in my initial note 06/16/2017. I met with the patient evening of 06/16/2017. Reviewed her history. She was living at [facility] when she had recurrent symptoms of depression, psychosis within possible context of bipolar disorder and was transferred to [facility]. She slept 5-1/4 hours, will be requested past psychiatric records. She is confused, [place], complains of back pain, impaired ambulation. REVIEW OF SYSTEMS: Ambulation impaired, in wheelchair. No CV, , pulmonary, eye, ENT system symptoms on review. Reliability poor. MENTAL STATUS EXAM: Oriented to herself. Insight, judgment, recent and remote memory, attention, concentration, fund of knowledge poor, consistent with her diagnosis, constantly moving. LABORATORY DATA: Reviewed. IMPRESSION: Major neurocognitive disorder, Alzheimer, vascular with depression, delusion, possible bipolar 1 disorder mixed with psychotic features. PLAN: Start Seroquel 25 mg p.o. at bedtime. Reduce Haldol p.r.n. Cymbalta 60 mg b.i.d. given her possible bipolar disorder diagnosis. Mood lability could be worsened by the current dosage of Cymbalta. We will reduce to 30 mg twice a day. Continue Lamictal, may need to increase this. MAN Rosie SEWELL MD DR: FLAVIA/lizy JOB#: [id number] / [id number]
--- NOTE | 2017-06-18 23:15 | PN ---
DATE: 06/17/2017 This is a late entry, covers the elements not covered in my initial note, 06/17/2017. SUBJECTIVE: I met with the patient in the evening of 06/17/2017. The patient remains quite confused, labile and anxious, delusional, [place], compliant with medications, slept 7 hours previous evening. She has left a message that the daughter would like the patient discharged as soon as possible. I will have the social service assistant coordinate with her facility once to see what they are capable of handling. At this time, she is extremely confused, restless, anxious, labile in her mood with racing thoughts at times. REVIEW OF SYSTEMS: Ambulation impaired, in wheelchair. No CV, , pulmonary, eye system symptoms on review. Reliability poor. MENTAL STATUS EXAM: Oriented to herself. Insight, judgment, recent and remote memory, attention, concentration, fund of knowledge poor, consistent with her diagnosis. IMPRESSION: Major neurocognitive disorder, Alzheimer, vascular with depression, delusion, behavioral disturbance, questionable bipolar disorder history. PLAN: Continue current psychotropics, low-dose Seroquel was initiated, Cymbalta reduced to a more reasonable dosage for her age. Continue rest unchanged. We will reduce hydroxyzine to 10 mg 3 times a day starting 06/18/2017. MAN Rosie SEWELL MD DR: FLAVIA/lizy JOB#: [id number] / [id number]
[2017-06-19] MEDS: BENZONATATE 100 MG CAPSULE. PO SCH ×3 (05:24→20:00)
[2017-06-19 06:06] VITALS: BP 193/80
[2017-06-19] MEDS: INSULIN ASPART 300 UNITS/3 ML INSULN.PEN SQ SCH ×4 (07:30→20:01)
[2017-06-19] MEDS: DOCUSATE SODIUM 100 MG CAPSULE PO SCH ×2 (08:17→20:00)
[2017-06-19] MEDS: lamoTRIgine 100 MG TABLET. PO SCH (08:17)
[2017-06-19] MEDS: DULoxetine HCL 30 MG CAPSULE.DR PO SCH ×2 (08:17→20:00)
[2017-06-19] MEDS: METOPROLOL SUCC 24HR ER 25 MG TAB.ER.24H. PO SCH (08:18)
[2017-06-19] MEDS: GABAPENTIN 300 MG CAPSULE. PO SCH ×3 (08:18→20:00)
[2017-06-19] MEDS: PRIMIDONE 50 MG TABLET PO SCH ×2 (08:18→20:00)
[2017-06-19] MEDS: hydrOXYzine HCL 10 MG TABLET PO SCH ×3 (08:18→20:00)
[2017-06-19] MEDS: PANTOPRAZOLE 40 MG TABLET. PO SCH (08:18)
[2017-06-19] MEDS: LACTOBACILLUS RHAMNOSUS GG 1 CAPSULE. PO SCH ×2 (08:19→20:00)
[2017-06-19] MEDS: glipiZIDE 10 MG TABLET PO SCH ×2 (08:21→17:37)
[2017-06-19] MEDS: oxyCODONE/APAP 5/325 1 TAB TABLET PO PRN ×2 (08:26→16:08)
[2017-06-19] MEDS: METHYL SALICYLATE/MENTHOL TOPICAL OINTMENT 29GM TUBE. TP PRN (10:02)
[2017-06-19] MEDS ORDERED: DICLOFENAC SODIUM 1% TOPICAL GEL 100GM TUBE. TP PRN (10:15)
[2017-06-19 16:03] VITALS: BP 113/55
[2017-06-19] MEDS: QUEtiapine 25 MG TABLET. PO SCH (20:00)
[2017-06-19] MEDS: BENZTROPINE MESYLATE 0.5 MG TABLET PO SCH (20:03)
--- NOTE | 2017-06-19 20:08 | PDOC ---
Exam Note: Sukhdev Note: Please also refer to the separate dictated note~for this date of service dictated separately.~Patient seen individually. Discussed the patient with Nursing staff reviewed the chart.~Reviewed interim history and current functioning. Reviewed vital signs,~Labs/ Radiology~and current medications noted below. Continue current treatment with the changes noted in the dictated addendum note Assessment: Vital Signs: Vital Signs Date Time Temp Pulse Resp B/P (MAP) Pulse Ox O2 Delivery O2 Flow Rate FiO2 06/19/17 17:15 Room Air 06/19/17 16:03 98.2 74 18 113/55 (74) 95 I&O Intake and Output 06/19/17 07:00 Intake Total 1080 ml Balance 1080 ml Intake Oral 1080 ml # Voids 1 # Bowel Movements 2 Labs: Laboratory Tests Test 06/19/17 07:21 06/19/17 12:04 06/19/17 16:29 06/19/17 19:36 Glucose (Fingerstick) 73 mg/dL (70-99) 204 mg/dL (70-99) H 157 mg/dL (70-99) H 114 mg/dL (70-99) H Current Medications: Meds: Current Medications Acetaminophen (Tylenol) 650 mg PRN Q6HRS PRN PO PAIN / TEMP; Start 06/15/17 at 18:30; Stop 06/15/17 at 20:36; Status DC Multi-Ingredient Ointment (Analgesic [place]) 1 phu PRN QID PRN TP MUSCLE PAIN Last administered on 06/19/17at 10:02; Start 06/15/17 at 18:30 Al Hydroxide/Mg Hydroxide (Mylanta Plus Xs) 15 ml PRN AFTMEALHC PRN PO DYSPEPSIA; Start 06/15/17 at 18:30 Magnesium Hydroxide (Milk Of Magnesia) 2,400 mg PRN QHS PRN PO CONSTIPATION; Start 06/15/17 at 18:30 Duloxetine HCl (Cymbalta) 60 mg BID PO Last administered on 06/16/17at 08:38; Start 06/15/17 at 21:00; Stop 06/16/17 at 18:29; Status DC Haloperidol (Haldol) 0.5 mg PRN QID PRN PO ANXIETY / AGITATION Last administered on 06/16/17at 02:58; Start 06/15/17 at 20:15 Hydroxyzine Pamoate (Vistaril) 25 mg TID PO Last administered on 06/18/17 08: 44; Start 06/15/17 at 21:00; Stop 06/18/17 at 09:15; Status DC Lamotrigine (LaMICtal) 100 mg DAILY PO Last administered on 06/19/17at 08:17; Start 06/16/17 at 09:00 Primidone (Mysoline) 50 mg BID PO Last administered on 06/19/17at 20:00; Start 06/15/17 at 21:00 Insulin Aspart (NovoLOG) 0-7 UNITS QIDACHS SQ Last administered on 06/19/17at 17 :41; Start 06/15/17 at 21:00 Dextrose 12.5 gm PRN Q15MIN PRN IV SEE COMMENTS; Start 06/15/17 at 20:30 Acetaminophen (Tylenol) 650 mg PRN Q4HRS PRN PO PAIN; Start 06/15/17 at 20:30 Benzonatate (Tessalon Perle) 100 mg Q8HRS PO Last administered on 06/19/17at 20: 00; Start 06/15/17 at 22:00 Docusate Sodium (Colace) 100 mg BID PO Last administered on 06/19/17at 20:00; Start 06/15/17 at 21:00 Gabapentin (Neurontin) 300 mg TID PO Last administered on 06/19/17at 20:00; Start 06/15/17 at 21:00 Glipizide (Glucotrol) 10 mg BIDBFRMEAL PO Last administered on 06/19/17at 17:37 ; Start 06/16/17 at 07:30 Metoprolol Succinate (Toprol Xl) 25 mg DAILY PO Last administered on 06/19/17at 08:18; Start 06/16/17 at 09:00 Oxycodone/ Acetaminophen (Percocet 5/325) 1 tab PRN Q6HRS PRN PO MODERATE PAIN Last administered on 06/19/17at 16:08; Start 06/15/17 at 20:30 Silver Sulfadiazine (Silvadene) 1 phu QHS TP ; Start 06/15/17 at 21:00; Status Cancel Doxycycline Hyclate (Vibra-Tab) 100 mg BID PO Last administered on 06/18/17at 08 :43; Start 06/15/17 at 21:00; Stop 06/18/17 at 13:27; Status DC Non-Formulary Medication 1 units QIDACHS SQ ; Start 06/15/17 at 21:00; Stop at 21:00; Status DC Pantoprazole Sodium (Protonix) 40 mg DAILYAC PO Last administered on 06/19/17at 08:18; Start 06/16/17 at 07:30 Silver Sulfadiazine (Silvadene) 1 phu QHS TP Last administered on 06/15/17at 21: 30; Start 06/15/17 at 21:30; Stop 06/16/17 at 16:24; Status DC Lactobacillus Rhamnosus (Culturelle) 1 cap BID PO Last administered on at 20:00; Start 06/16/17 at 21:00 Vitamin A/Vitamin D (Vitamin A & D Ointment) 1 phu PRN BID PRN TP SKIN PROTECTION; Start 06/16/17 at 16:30 Duloxetine HCl (Cymbalta) 30 mg BID PO Last administered on 06/19/17at 20:00; Start 06/16/17 at 21:00 Quetiapine Fumarate (SEROquel) 25 mg QHS PO Last administered on 06/19/17at 20: 00; Start 06/16/17 at 21:00 Hydroxyzine HCl (Atarax) 10 mg TID PO Last administered on 06/19/17at 20:00; Start 06/18/17 at 14:00 Fosfomycin Tromethamine (Monurol) 3 gm 1X ONCE PO Last administered on at 14:21; Start 06/18/17 at 14:00; Stop 06/18/17 at 14:01; Status DC Fluconazole (Diflucan) 100 mg 1X ONCE PO Last administered on 06/18/17at 14:21 ; Start 06/18/17 at 14:00; Stop 06/18/17 at 14:01; Status DC Diclofenac Sodium (Voltaren) 1 phu PRN BID PRN TP PAIN Last administered on at 14:15; Start 06/19/17 at 10:15 Benztropine Mesylate (Cogentin) 0.5 mg BID PO Last administered on 06/19/17at 20 :03; Start 06/19/17 at 21:00 Active Scripts Active Reported Silvadene (Silver Sulfadiazine) 20 Gm Cream..g. 1 Phu TP QHS Primidone 50 Mg Tablet 50 Mg PO BID Omeprazole 40 Mg Capsule.dr 40 Mg PO DAILY Metoprolol Succinate ( Xl ) (Metoprolol Succinate) 25 Mg Tab.er.24h 25 Mg PO DAILY Lamictal (Lamotrigine) 100 Mg Tablet 100 Mg PO DAILY Humalog (Insulin Lispro) 100 Unit/1 Ml Vial 0-7 Units SQ QIDACHS Sliding Scale Medium dose Hydroxyzine Pamoate 25 Mg Capsule 25 Mg PO TID Haloperidol 0.5 Mg Tablet 0.5 Mg PO PRN QID PRN Glipizide 10 Mg Tablet 10 Mg PO BIDBFRMEAL Neurontin (Gabapentin) 300 Mg Capsule 300 Mg PO TID Famotidine 20 Mg Tablet 20 Mg PO DAILYAC Duloxetine Hcl 60 Mg Capsule.dr 60 Mg PO BID Doxycycline Hyclate 100 Mg Tablet.dr 100 Mg PO BID 10 Days Colace (Docusate Sodium) 100 Mg Capsule 100 Mg PO BID Bismatrol (Bismuth Subsalicylate) 262 Mg Tab.chew 524 Mg PO PRN QID PRN Cough Syrup Dm (Guaifenesin/Dextromethorphan) 237 Ml Syrup 10 Ml PO PRN Q4HRS PRN Benzonatate 100 Mg Capsule 100 Mg PO Q8HRS Percocet 5-325 Mg Tablet (Oxycodone Hcl/Acetaminophen) 1 Each Tablet 1 Tab PO PRN Q6HRS PRN Tylenol (Acetaminophen) 325 Mg Tablet 650 Mg PO PRN Q4HRS PRN I have reviewed the current psychotropics carefully including drug interactions. Risk benefit ratio favors no change other than as noted in my dictated progress note. Diagnosis: Problems: (1) Anxiety disorder (2) Bipolar affective disorder, mixed (3) Dementia in Alzheimer's disease with delusions (4) Dementia in Alzheimer's disease with depression (5) Dementia, vascular, with delusions (6) Dementia, vascular, with depression (7) Impulse control disorder FRANCO SEWELL MD Jun 19, 2017 20:08
[2017-06-20] MEDS: BENZONATATE 100 MG CAPSULE. PO SCH ×3 (06:10→20:51)
[2017-06-20 06:18] VITALS: BP 154/75
[2017-06-20] MEDS: INSULIN ASPART 300 UNITS/3 ML INSULN.PEN SQ SCH ×4 (07:30→20:49)
[2017-06-20] MEDS: METOPROLOL SUCC 24HR ER 25 MG TAB.ER.24H. PO SCH (07:55)
[2017-06-20] MEDS: PRIMIDONE 50 MG TABLET PO SCH ×2 (07:55→20:51)
[2017-06-20] MEDS: BENZTROPINE MESYLATE 0.5 MG TABLET PO SCH ×2 (07:55→20:51)
[2017-06-20] MEDS: lamoTRIgine 100 MG TABLET. PO SCH (07:55)
[2017-06-20] MEDS: DULoxetine HCL 30 MG CAPSULE.DR PO SCH ×2 (07:55→20:51)
[2017-06-20] MEDS: GABAPENTIN 300 MG CAPSULE. PO SCH ×3 (07:56→20:51)
[2017-06-20] MEDS: LACTOBACILLUS RHAMNOSUS GG 1 CAPSULE. PO SCH ×2 (07:56→20:51)
[2017-06-20] MEDS: DOCUSATE SODIUM 100 MG CAPSULE PO SCH ×2 (07:56→20:51)
[2017-06-20] MEDS: hydrOXYzine HCL 10 MG TABLET PO SCH ×3 (07:56→20:51)
[2017-06-20] MEDS: PANTOPRAZOLE 40 MG TABLET. PO SCH (07:56)
[2017-06-20] MEDS: glipiZIDE 10 MG TABLET PO SCH ×2 (07:56→17:07)
[2017-06-20] MEDS: oxyCODONE/APAP 5/325 1 TAB TABLET PO PRN ×2 (08:32→22:15)
--- NOTE | 2017-06-20 14:50 | PN ---
DATE: 06/19/2017 SUBJECTIVE: The patient was seen today, met with the staff, chart reviewed. The patient continues to have problems, significant physical complaints and involuntary movements of upper extremities. The patient states she had this for a couple of years, it is not clear ____ drug-induced or not. The patient thinks she may have Parkinson's. The patient continues to have racing thoughts. The patient has a history of opioid dependence in the past. The patient is constantly anxious. Apparently, daughter wants her home, wanting her to be discharged, but the patient at this time is not ready to go home. The patient is also suspected of having UTI. OBSERVATION: VITAL SIGNS: Temperature 97.9, blood pressure 193/80, pulse 80, respirations 20, O2 sat 93%. Slept about 4 hours last night. The patient's appetite decreased. CURRENT MEDICATIONS: Include Seroquel 25 mg at night, Cymbalta 30 mg b.i.d., Lamictal 100 mg daily, gabapentin 300 mg t.i.d. She is also on Haldol 0.5 mg q.i.d. p.r.n. LABORATORY DATA: Lab reviewed, no significant changes from the previous levels. Blood sugar continues to be elevated. The patient's lipid profile within normal range. Hemoglobin A1c was 6.8. ASSESSMENT: Major neurocognitive disorder, Alzheimer's, vascular with depression, delusions and behavioral disturbances and also possible history of bipolar in the past. PLAN: To continue with the treatment. SERGO REYES MD DR: AVERY/lizy JOB#: [id number] / [id number]
[2017-06-20 16:02] VITALS: BP 147/76
[2017-06-20] MEDS: QUEtiapine 25 MG TABLET. PO SCH (20:51)
[2017-06-21] MEDS ORDERED: BENZ0.5T PO (00:36)
[2017-06-21] MEDS ORDERED: DICL100G18 TP (00:38)
[2017-06-21] MEDS ORDERED: DULO30CA2 PO (00:39)
[2017-06-21] MEDS ORDERED: INSU100I17 SQ (00:46)
[2017-06-21] MEDS ORDERED: LACT1CAP21 PO (00:48)
[2017-06-21] MEDS ORDERED: MAG30ORA2 PO (00:50)
[2017-06-21] MEDS ORDERED: MAGN400O7 PO (00:51)
[2017-06-21] MEDS ORDERED: METH29OI TP (00:52)
[2017-06-21] MEDS ORDERED: PANT40TA3 PO (00:54)
[2017-06-21] MEDS ORDERED: QUET25TA5 PO (00:57)
[2017-06-21] MEDS ORDERED: VITS56.7 TP (00:58)
[2017-06-21] MEDS ORDERED: HYDR10TA2 PO (01:00)
[2017-06-21] MEDS: BENZONATATE 100 MG CAPSULE. PO SCH ×2 (06:00→06:09)
[2017-06-21 06:05] VITALS: BP 133/69
[2017-06-21] MEDS: INSULIN ASPART 300 UNITS/3 ML INSULN.PEN SQ SCH ×2 (07:30→12:07)
[2017-06-21 08:03] VITALS: BP 133/69
[2017-06-21] MEDS: GABAPENTIN 300 MG CAPSULE. PO SCH (08:03)
[2017-06-21] MEDS: DOCUSATE SODIUM 100 MG CAPSULE PO SCH (08:03)
[2017-06-21] MEDS: METOPROLOL SUCC 24HR ER 25 MG TAB.ER.24H. PO SCH (08:03)
[2017-06-21] MEDS: LACTOBACILLUS RHAMNOSUS GG 1 CAPSULE. PO SCH (08:03)
[2017-06-21] MEDS: DULoxetine HCL 30 MG CAPSULE.DR PO SCH (08:03)
[2017-06-21] MEDS: BENZTROPINE MESYLATE 0.5 MG TABLET PO SCH (08:03)
[2017-06-21] MEDS: lamoTRIgine 100 MG TABLET. PO SCH (08:03)
[2017-06-21] MEDS: PANTOPRAZOLE 40 MG TABLET. PO SCH (08:04)
[2017-06-21] MEDS: hydrOXYzine HCL 10 MG TABLET PO SCH (08:04)
[2017-06-21] MEDS: PRIMIDONE 50 MG TABLET PO SCH (08:04)
[2017-06-21] MEDS: glipiZIDE 10 MG TABLET PO SCH (08:04)
[2017-06-21] MEDS: oxyCODONE/APAP 5/325 1 TAB TABLET PO PRN (08:42)
--- NOTE | 2017-06-21 17:02 | PN ---
DATE: 06/20/2017 SUBJECTIVE: The patient was seen today, met with the staff, chart reviewed. The patient continues to be anxious, worried, racing thoughts. The patient has a past history of opioid dependence and also exposure to several medications, mostly psychiatric medications. The patient has involuntary movements, resting tremors and the patient has no prior diagnosis of Parkinson's. Staff reports no major problems. The patient is suspected of having a UTI, awaiting for culture and sensitivity. OBSERVATION: VITAL SIGNS: Temperature 98, blood pressure 154/75, pulse 71, respiration 18, O2 sat 95%. Slept about 8 hours last night. The patient's appetite is fair. The patient did not have any falls. MEDICATIONS: The patient's current medications include Seroquel 25 mg at night, Cymbalta 30 mg b.i.d., Lamictal 100 mg daily and gabapentin 300 mg t.i.d. and Haldol 0.5 mg q.i.d. p.r.n. ASSESSMENT: Major neurocognitive disorder, Alzheimer's, vascular with depression, delusions and behavioral disturbances. PLAN: To continue with the treatment. SERGO REYES MD DR: AVERY/lizy JOB#: [id number] / [id number]
--- NOTE | 2017-06-21 21:04 | DS ---
DATE OF DISCHARGE: 06/21/2017 FINAL DIAGNOSES: AXIS I: 1. Bipolar disorder type 1, mixed, with psychotic features. 2. Cognitive disorder, unspecified. 3. Anxiety disorder, unspecified. AXIS II: None. AXIS III: Chronic back pain, degenerative disk disease, diabetes mellitus type 2, osteoarthritis, osteoporosis, tremors, history of falls, neuropathy, scoliosis. REASON FOR ADMISSION: This 86-year-old female was admitted to [facility] at [facility]. The patient was admitted from [facility] because of altered mental status, racing thoughts, constantly ____ and overdosing on narcotics and also abusing them. HISTORY OF PRESENT ILLNESS: The patient apparently was admitted to [facility] first because of the acute mental status changes and worsening of her hand tremors. The patient also admitted to using antipsychotics in the past and is not clear whether it is related to tardive dyskinesia with that she has an involuntary movements. The patient also diagnosed with Parkinson's in the past. 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 HOSPITAL COURSE: The patient had a physical exam, routine lab work including CBC, chem profile, urinalysis, which were all within normal range except for elevated blood sugar with fluctuations. The patient's urinalysis was within normal limits. The patient's RPR was nonreactive. Urine culture was negative. The patient was involved in the program including individual therapy, group therapy, activity therapy. The patient was continued on her medications that included Seroquel 25 mg at night, Cymbalta 30 mg b.i.d., hydroxyzine 10 mg t.i.d., Lamictal 100 mg daily, Protonix 40 mg daily, glipizide 10 mg b.i.d., gabapentin 300 mg t.i.d. The patient was also on insulin aspart, primidone 50 mg b.i.d. for tremors, ____ mg q.i.d. The patient continued to have problems with tremors, periods of agitation and some racing thoughts, but overall improved. The patient's vital signs were stable. The patient did not have any side effects to the medications. MENTAL STATUS: Significantly improved, still has some cognitive deficits, periods of agitation, but no overt psychotic symptoms. No major behavior problems. AFTERCARE PLAN: The patient was discharged with the recommendation to continue with the medications listed above. The patient will be going back to [facility] and the patient will also see her primary care doctor and also recommend follow up with the psychiatrist. SERGO REYES MD DR: AVERY/lizy JOB#: [id number] / [id number]
--- NOTE | 2017-06-26 23:23 | PN ---
DATE: 06/18/2017 This is a late entry for 06/18/2017 and covers elements not covered in my initial note of 06/18/2017. I with the patient evening of 06/18/2017. Overall, the patient remains somewhat anxious, delusional, at times believes she is in a train station, compliant with medications. REVIEW OF SYSTEMS: Ambulation impaired, in wheelchair. No CV, , pulmonary, eye, ENT system symptoms on review. Reliability varies. MENTAL STATUS EXAM: Oriented to herself and situation. Speech is coherent, has some latency. Abstraction fair, computation impaired, language function intact, attention span short. Mood and affect remain somewhat anxious, labile. LABORATORY DATA: Reviewed. IMPRESSION: Bipolar 1 disorder, mixed. Rest unchanged from initial note. PLAN: Continue current psychotropics. Adjust further as clinically indicated. MAN Rosie SEWELL MD DR: FLAVIA/lizy JOB#: [id number] / [id number]
== END 2017-06-21 14:00 | disposition home or self-care (01) | DRG 885 ==
LOC: GEROPSY 17:33
PROVIDERS: ADMIT Psychiatry & Neurology Psychiatry; ATTEND Psychiatry & Neurology Psychiatry
DX: F31.60 Bipolar disorder, current episode mixed, unspecified (principal); E11.40 Type 2 diabetes mellitus with diabetic neuropathy, unspecified; E11.65 Type 2 diabetes mellitus with hyperglycemia; G20 Parkinson's disease; M41.9 Scoliosis, unspecified; F01.51 Vascular dementia, unspecified severity, with behavioral disturbance; F02.81 Dementia in other diseases classified elsewhere, unspecified severity, with behavioral disturbance; N39.0 Urinary tract infection, site not specified; G30.9 Alzheimer's disease, unspecified; F22 Delusional disorders; F41.9 Anxiety disorder, unspecified; F63.9 Impulse disorder, unspecified; G89.29 Other chronic pain; I10 Essential (primary) hypertension; M81.0 Age-related osteoporosis without current pathological fracture; R26.9 Unspecified abnormalities of gait and mobility; M19.90 Unspecified osteoarthritis, unspecified site; Z79.899 Other long term (current) drug therapy; Z79.84 Long term (current) use of oral hypoglycemic drugs; Z91.81 History of falling; Z99.3 Dependence on wheelchair; Z88.5 Allergy status to narcotic agent; Z88.0 Allergy status to penicillin; Z90.89 Acquired absence of other organs; Z87.01 Personal history of pneumonia (recurrent)
CPT/HCPCS: 36415; 80053; 80061; 81001; 82306; 82607; 82947; 83036; 83540; 83550; 83735; 84436; 84443; 84480; 85025; 86593; 87086; 93005; J1815; Q0177